=== PATIENT | female | born 2000 | race Caucasian/White ===

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

== ENCOUNTER 2022-03-27 14:57 | Emergency (ER) | payer OTHER, SELFPAY ==
[~2022-03-27] VITALS: Ht 160 cm; Wt 53.5 kg
[2022-03-27 17:00] LABS: MONO REFLEX EBV COMP NEGATIVE (NEGATIVE)
[2022-03-27] MEDS ORDERED: AMOX500C PO (17:22)
[2022-03-27 17:33] VITALS: BP 103/59
== END 2022-03-27 17:37 | disposition home or self-care (01) ==
LOC: M ED 14:57
DX: J02.9 Acute pharyngitis, unspecified (principal); H66.91 Otitis media, unspecified, right ear; F17.200 Nicotine dependence, unspecified, uncomplicated; F41.9 Anxiety disorder, unspecified

== ENCOUNTER → 2023-09-26 | Outpatient (CLI) | payer MEDICAID ==
[~2023-09-26] MED LIST changes: +AMOX500C PO; +ETON68IM SC; -NEXP1IMP SC
[2023-09-26 16:56] LABS: HEMOGLOBIN 11.7 g/dl (12.0-15.5); MEAN CORPUSCULAR HEMOGLOBIN 29.8 pg (27.0-33.0); MEAN CORPUSCULAR HGB CONC 32.5 g/dl (32.0-36.5); MEAN CORPUSCULAR VOLUME 91.6 fl (80.0-96.0); PLATELET COUNT, AUTOMATED 263 10^3/uL (150-450); RED BLOOD COUNT 3.93 10^6/uL (4.00-5.40); WHITE BLOOD COUNT 9.1 10^3/uL (4.0-10.0)
[2023-09-26 17:33] LABS: HIV 1&2 SCREEN NEGATIVE (NEGATIVE)
[2023-09-26 17:41] LABS: HEPATITIS C VIRUS ABY INDEX 0.06 INDEX (<0.8)
[2023-09-26 17:48] LABS: CHLAMYDIA DNA AMPLIFICATION NEGATIVE (NEGATIVE); GC DNA AMPLIFICATION NEGATIVE (NEGATIVE)
== END ==
LOC: M PLALAB 12:40
PROVIDERS: ATTEND Obstetrics & Gynecology
DX: Z34.92 Encounter for supervision of normal pregnancy, unspecified, second trimester (principal); Z34.80 Encounter for supervision of other normal pregnancy, unspecified trimester

== ENCOUNTER → 2023-09-26 | Outpatient (REF) | payer MEDICAID, OTHER | LOC: M PLALAB 12:30 | PROVIDERS: ATTEND Obstetrics & Gynecology | DX: Z34.92 Encounter for supervision of normal pregnancy, unspecified, second trimester (principal) ==

== ENCOUNTER → 2023-10-18 | Outpatient (CLI) | payer OTHER | LOC: M WHC 13:41 | PROVIDERS: ATTEND Obstetrics & Gynecology | DX: O32.1XX0 Maternal care for breech presentation, not applicable or unspecified (principal); Z3A.21 21 weeks gestation of pregnancy ==

== ENCOUNTER → 2023-12-13 | Outpatient (CLI) | payer OTHER | LOC: M PLALAB 15:50 | PROVIDERS: ATTEND Advanced Practice Midwife | DX: Z34.82 Encounter for supervision of other normal pregnancy, second trimester (principal); Z3A.00 Weeks of gestation of pregnancy not specified ==

== ENCOUNTER → 2023-12-14 | Outpatient (CLI) | payer OTHER ==
[2023-12-14 17:21] LABS: HEMATOCRIT 31.1 % (36.0-47.0); MEAN CORPUSCULAR HEMOGLOBIN 29.4 pg (27.0-33.0); MEAN CORPUSCULAR HGB CONC 32.2 g/dl (32.0-36.5); MEAN CORPUSCULAR VOLUME 91.5 fl (80.0-96.0); PLATELET COUNT, AUTOMATED 294 10^3/uL (150-450); WHITE BLOOD COUNT 10.9 10^3/uL (4.0-10.0)
== END ==
LOC: M PLALAB 12:30
PROVIDERS: ATTEND Advanced Practice Midwife
DX: Z34.82 Encounter for supervision of other normal pregnancy, second trimester (principal); Z3A.00 Weeks of gestation of pregnancy not specified

== ENCOUNTER 2023-12-18 00:32 | Emergency (ER) | payer OTHER ==
[~2023-12-18] VITALS: Ht 160 cm; Wt 85.4 kg
[2023-12-18 00:32] VITALS: BP 120/72; TEMP 97.6; O2SAT 97
== END 2023-12-18 01:00 | disposition admitted as inpatient to this hospital (09) ==
LOC: M ED 00:32
DX: Z53.21 Procedure and treatment not carried out due to patient leaving prior to being seen by health care provider (principal)

== ENCOUNTER 2023-12-18 01:00 | Outpatient (CLI) | payer OTHER ==
[~2023-12-18] VITALS: Ht 160 cm; Wt 85.7 kg
[2023-12-18 01:15] VITALS: BP 137/75
[2023-12-18 04:18] VITALS: BP 124/61
== END 2023-12-18 06:03 | disposition home or self-care (01) ==
LOC: M LDO 01:00
PROVIDERS: ATTEND Obstetrics & Gynecology
DX: O26.893 Other specified pregnancy related conditions, third trimester (principal); R10.2 Pelvic and perineal pain; Z3A.29 29 weeks gestation of pregnancy
CPT/HCPCS: 59025; 81001; G0463

== ENCOUNTER → 2023-12-29 | Outpatient (CLI) | payer OTHER | LOC: M WHC 13:20 | PROVIDERS: ATTEND Advanced Practice Midwife | DX: Z34.82 Encounter for supervision of other normal pregnancy, second trimester (principal) ==

== ENCOUNTER → 2024-01-13 | Outpatient (CLI) | payer OTHER | LOC: M PLALAB 10:36 | PROVIDERS: ATTEND Advanced Practice Midwife | DX: Z34.82 Encounter for supervision of other normal pregnancy, second trimester (principal) ==

== ENCOUNTER → 2024-01-31 | Outpatient (REF) | payer OTHER | LOC: M SFHCWAGY 14:56 | PROVIDERS: ATTEND Advanced Practice Midwife | DX: Z36.85 Encounter for antenatal screening for Streptococcus B (principal); Z3A.36 36 weeks gestation of pregnancy ==